=== PATIENT | male | born 2005 | race Caucasian/White ===

== ENCOUNTER 2024-06-20 21:35 | Emergency (ER) | payer OTHER ==
[~2024-06-20] VITALS: Ht 167.6 cm; Wt 81.6 kg
[2024-06-20 21:36] VITALS: BP 132/82; PULSE 88; RESP 16; TEMP 97.2; O2SAT 98
[2024-06-20 21:55] VITALS: O2SAT 98
== END 2024-06-20 22:09 ==
LOC: MED 21:35
DX: M79.662 Pain in left lower leg (principal); R03.0 Elevated blood-pressure reading, without diagnosis of hypertension; V49.9XXA Car occupant (driver) (passenger) injured in unspecified traffic accident, initial encounter; Y93.89 Activity, other specified; Y92.89 Other specified places as the place of occurrence of the external cause; Y99.8 Other external cause status
CPT/HCPCS: 99283